=== PATIENT | female | born 1990 | race Caucasian/White ===

== ENCOUNTER 2017-09-26 11:39 | Emergency (ER) | payer SELFPAY ==
[~2017-09-26] VITALS: Ht 167.6 cm; Wt 56.8 kg
[2017-09-26] MEDS ORDERED: ZITHROMAX250 MG PO (11:52)
[2017-09-26] MEDS ORDERED: MEDDOSEPAK PO (11:52)
[2017-09-26] MEDS ORDERED: PROVENTIL HFA IN (11:52)
[2017-09-26 12:05] VITALS: BP 109/55
== END 2017-09-26 12:05 | disposition home or self-care (01) | DRG 203 ==
LOC: ED 11:39
DX: J45.909 Unspecified asthma, uncomplicated (principal); F17.210 Nicotine dependence, cigarettes, uncomplicated; Z87.01 Personal history of pneumonia (recurrent)